=== PATIENT | female | born 1960 | race Caucasian/White ===

== ENCOUNTER → 2021-02-20 | Outpatient (CLI) | payer BC ==
--- NOTE | 2021-02-20 10:30 | CT ---
EXAMINATION TYPE: CT angio thor/abd pel aorta DATE OF EXAM: 02/20/2021 COMPARISON: Prior CTA July 31, 2018. HISTORY: Aneurysm CT DLP: 961.4 mGycm. Automated Exposure Control for Dose Reduction was Utilized. CONTRAST: CTA scan of the thorax, abdomen and pelvis is performed without oral and without and with IV Contrast , patient injected with 100 ml mL of Isovue 370. Aneurysm protocol. Three-D reconstructed images crea sonu on an independent workstation and reviewed. FINDINGS: VASCULAR: Noncontrast images show no suspicious hyperdensity to suggest intramural hematoma. Postcont rast images redemonstrate left-sided arch with a very right brachiocephalic artery running posterior to esophagus, normal variant. Aorta level of aortic root measures 4.1 cm in diameter image 43, not si gnificantly changed from prior study. Ascending aorta measures 4.0 cm in diameter at level of right p ulmonary artery axial image 25 stable or slightly more prominent from prior. No aneurysm extension in to the descending aorta. Patent celiac artery SMA, bilateral single renal arteries and LESLEY. Patent il iac arteries bilaterally extending into femoral arteries and the bilateral groin. No significant plaq ue or stenosis. No linear hypodensity to suggest dissection. LUNGS: Mild emphysematous and pulmonary fibrotic changes. Stable 3 mm nodule or nodular atelectasis r ight lower lobe axial image 36 posteriorly. No new or enlarging greater than 5 mm nodules. There is no pleural effusion or pneumothorax seen. The tracheobronchial tree is patent. MEDIASTINUM: There are no new greater than 1 cm hilar or mediastinal lymph nodes. No cardiomegaly o r pericardial effusion is seen. Tiny calcification left thyroid lobe axial image 3 series 6. LIVER/GB: Occasional subtle subcentimeter hypodense focus redemonstrated presumed benign. PANCREAS: No significant abnormality is seen. SPLEEN: No significant abnormality is seen. ADRENALS: No significant abnormality is seen. KIDNEYS: No significant abnormality is seen. BOWEL: Diverticula in the sigmoid colon redemonstrated. GENITAL ORGANS: Uterus surgically absent or markedly atrophic. Occasional scattered pelvic phlebolith s redemonstrated. LYMPH NODES: No greater than 1cm abdominal or pelvic lymph nodes are appreciated. OSSEOUS STRUCTURES: Moderate disc space narrowing with endplate sclerosis and vacuum disc phenomenon anterior L3-L4 level. OTHER: No significant additional abnormality is seen. IMPRESSION: Ascending aortic aneurysm up to 4.1 cm stable or minimally enlarged versus prior study.
== END | disposition home or self-care (01) ==
LOC: MERGE 08:20 → RADCTMAIN 08:34
PROVIDERS: ATTEND Internal Medicine
DX: I71.2 Thoracic aortic aneurysm, without rupture (principal)
CPT/HCPCS: 71275; 74174; Q9967

== ENCOUNTER → 2022-12-31 | Outpatient (CLI) | payer BC ==
--- NOTE | 2022-12-31 16:09 | CT ---
EXAMINATION TYPE: CT angio thor/abd aorta DATE OF EXAM: 12/31/2022 COMPARISON: Prior CTA 02/20/2021. HISTORY: Aneurysm CT DLP: 1020.10 mGycm. Automated Exposure Control for Dose Reduction was Utilized. CONTRAST: CTA scan of the thorax and abdomen is performed without oral and without and with IV Contra st, patient injected with 100 ml mL of Isovue 370. Aneurysm protocol. Three-D reconstructed images cr eated on an independent workstation and reviewed. FINDINGS: VASCULAR: Noncontrast images show no suspicious hyperdensity to suggest intramural hematoma. Postcont rast images redemonstrate left-sided arch with a very right subclavian artery running posterior to es ophagus, normal variant. Consistent with a aberrant right subclavian artery. Aorta level of aortic ro ot measures 4.1 cm in diameter, not significantly changed from prior study. Ascending aorta measures 4.0 cm in diameter at level of right pulmonary artery is stable. No aneurysm extension into the desce nding aorta. Patent celiac artery SMA, bilateral single renal arteries and LESLEY. Patent iliac arteries bilaterally extending into femoral arteries and the bilateral groin. No significant plaque or stenos is. No linear hypodensity to suggest dissection. LUNGS: Mild emphysematous and pulmonary fibrotic changes. Stable 3 pulmonary nodule within the right lower lobe. No new or enlarging greater than 5 mm nodules. There is no pleural effusion or pneumothor ax seen. The tracheobronchial tree is patent. MEDIASTINUM: There are no new greater than 1 cm hilar or mediastinal lymph nodes. No cardiomegaly or pericardial effusion is seen. Tiny calcifications in the left thyroid lobe redemonstrated. LIVER/GB: Occasional subtle subcentimeter hypodense focus redemonstrated, presumed benign. PANCREAS: No significant abnormality is seen. SPLEEN: No significant abnormality is seen. ADRENALS: No significant abnormality is seen. KIDNEYS: No significant abnormality is seen. BOWEL: Diverticula in the sigmoid colon redemonstrated. LYMPH NODES: No pathologic enlarged lymph nodes identified. OSSEOUS STRUCTURES: Moderate disc space narrowing with endplate sclerosis and vacuum disc phenomenon anterior L3-L4 level. OTHER: No significant additional abnormality is seen. IMPRESSION: Stable ascending aortic aneurysm measuring up to 4.1 cm.
== END | disposition home or self-care (01) ==
LOC: RADCTMAIN 13:08
PROVIDERS: ATTEND Internal Medicine
DX: I71.21 Aneurysm of the ascending aorta, without rupture (principal)
CPT/HCPCS: 71275; 74175; Q9967

== ENCOUNTER → 2023-12-26 | Outpatient (CLI) | payer BC ==
--- NOTE | 2023-12-31 13:11 | CT ---
EXAMINATION TYPE: CT angio thor/abd CT DLP: 616 mGycm, Automated exposure control for dose reduction was used. DATE OF EXAM: 12/26/2023 7:15 PM COMPARISON: . CLINICAL INDICATION:Female, 63 years old with history of I71.21 ANEURYSM OF THE ASCENDING AORTA; PHH, Aneurysm of ascending aorta. TECHNIQUE: Dissection protocol: Multiple axial CT images of the chest, abdomen, and pelvis were obtai kat prior and to the administration of IV contrast. 3-D reformats and maximum intensity projection fo rmat were performed on a separate workstation. Contrast used:100ml mL of Isovue 370 with IV Contrast, Oral contrast used: FINDINGS: VASCULAR: Noncontrast images show no suspicious hyperdensity to suggest intramural hematoma. Postcont rast images redemonstrate left-sided arch with a very right subclavian artery running posterior to es ophagus, normal variant Consistent with a aberrant right subclavian artery. Aorta level of aortic chrissy t measures 4.1 cm in diameter, not significantly changed from prior study. Ascending aorta measures 4.0 cm in diameter at level of right pulmonary artery is stable. No aneurysm extension into the desce nding aorta. Patent celiac artery SMA, bilateral single renal arteries and LESLEY. Patent iliac arteries bilaterally extending into femoral arteries and the bilateral groin. No significant plaque or stenos is. No linear hypodensity to suggest dissection. LUNGS: Mild emphysematous and pulmonary fibrotic changes. Stable 3 mm pulmonary nodule within the rig ht lower lobe. No new or enlarging greater than 5 mm nodules. There is no pleural effusion or pneumot horax seen. The tracheobronchial tree is patent. MEDIASTINUM: There are no new greater than 1 cm hilar or mediastinal lymph nodes. No cardiomegaly or pericardial effusion is seen. Tiny calcifications in the left thyroid lobe redemonstrated. LIVER/GB: Occasional subtle subcentimeter hypodense focus redemonstrated, presumed benign. PANCREAS: No significant abnormality is seen. SPLEEN: No significant abnormality is seen. ADRENALS: No significant abnormality is seen. KIDNEYS: No significant abnormality is seen. BOWEL: Diverticula in the sigmoid colon redemonstrated. LYMPH NODES: No pathologic enlarged lymph nodes identified. OSSEOUS STRUCTURES: Moderate disc space narrowing with endplate sclerosis and vacuum disc phenomenon anterior L3-L4 level. OTHER: No significant additional abnormality is seen. IMPRESSION: Stable ascending aortic aneurysm measuring up to 4.1 cm.
== END | disposition home or self-care (01) ==
LOC: RADCTMAIN 16:20
PROVIDERS: ATTEND Internal Medicine
DX: I71.21 Aneurysm of the ascending aorta, without rupture (principal)
CPT/HCPCS: 71275; 74175; Q9967